=== PATIENT | female | born 1935 | race Caucasian/White ===

== ENCOUNTER 2017-07-14 09:03 | Observation (INO) | payer MEDICARE, BC ==
--- NOTE | 2017-07-14 09:12 | ERPHSYRPT ---
- History of Present Illness Time Seen by Provider: 07/14/17 09:07 Source: patient, EMS, intermediate records Exam Limitations: no limitations Physician History: 81-year-old white female with history of atrial fibrillation, pacer defibrillator brought by paramedics with complaint of the patient had slurry speech and left-sided arm weakness symptoms since 750 this morning at the intermediate, 'Patient was noted to have the slurry speech in the left-sided arm weakness on first contact with the intermediate personnel, Patient really states that she was really not aware of any deficits or weakness she is brought by medics who state they arrived at 820 they do not see any facial droop or a weakness or speech disorder. Patient arrives she is alert oriented 3 she has no visible defects stroke assessment is negative 2 per nursing personnel and medics. Past medical history includes atrial fibrillation,CHF, coronary artery disease, hyperlipidemia, high blood pressure, myocardial infarction, bronchitis, COPD, pneumonia, hypothyroidism Past surgical history: CABG, defibrillator/pacer, benign lung biopsy, ORIF right hip and femur Timing/Duration: today (750 this morning), improved, other (patient with no visible defects on ) Severity: moderate Modifying Factors: Improves With: nothing Associated Symptoms: other (patient states she feels tired this morning), No nausea, No vomiting, No abdominal pain, No shortness of breath, No heartburn, No diaphoresis, No cough, No chills, No chest pain, No fever, No headaches, No loss of appetite, No malaise, No rash, No syncope, No seizure, No weakness Allergies/Adverse Reactions: morphine Allergy (Severe, Verified 07/14/17 09:28) "Anaphylactic Shock" Home Medications: Acetaminophen 325 mg [Tylenol 325 mg] 650 mg PO Q4-6HPRN PRN 07/14/17 [ History] Digoxin 125 mcg PO DAILY 07/14/17 [History] Fentanyl 25Mcg Patch [Duragesic 25MCG Patch] 25 mcg TOP Q3D 07/14/17 [ History] Gabapentin 200 mg PO TID 07/14/17 [History] Hydrocodone Bit/Acetaminophen [Hydrocodon-Acetaminophn 10-325] 1 each PO Q4- 6HPRN PRN 07/14/17 [History] Hydrocodone Bit/Acetaminophen [Hydrocodon-Acetaminophn 10-325] 1 each PO TID 08/20 [History] Ipratropium/Albuterol Sulfate [Combivent Inhaler] 15 gm IH QID 07/14/17 [History ] Ipratropium/Albuterol Sulfate [Iprat-Albut 0.5-3(2.5) mg/3 ml] 3 ml IH Q8H PRN PRN 07/14/17 [History] Lactose-Reduced Food/Fiber [Jevity 1.2 Jostin Liquid] 80 ml PO DAILY 07/14/17 [ History] Lisinopril [Zestril] 5 mg PO DAILY 07/14/17 [History] Magnesium Hydroxide 30 ml [Milk of Magnesia 30 ml] 30 ml PO DAILY [History] Omeprazole 20 MG [Prilosec 20 mg] 20 mg PO DAILY 07/14/17 [History] Ondansetron HCl [Zofran] 4 mg PO Q4H PRN PRN 07/14/17 [History] Polyethylene Glycol 3350 17 gm [Miralax Powder 17GM PACKET] 17 gm PO DAILY [History] Potassium Chloride [Klor-Con 10] 10 meq PO DAILY 07/14/17 [History] Pramipexole Di-HCl [Mirapex] 0.25 mg PO HS 07/14/17 [History] Hx Tetanus, Diphtheria Vaccination/Date Given: No Hx Influenza Vaccination/Date Given: Yes Hx Pneumococcal Vaccination/Date Given: No (2010) - Review of Systems Constitutional: Fatigue, Other (patient feels tired this morning), No Fever, No Chills Eyes: No Symptoms Ears, Nose, & Throat: No Symptoms Respiratory: No Cough, No Dyspnea Cardiac: No Chest Pain, No Edema, No Syncope Abdominal/Gastrointestinal: No Abdominal Pain, No Nausea, No Vomiting, No Diarrhea Genitourinary Symptoms: No Dysuria Musculoskeletal: No Back Pain, No Neck Pain Skin: No Rash Neurological: Other (facial droop with left-sided arm weakness at intermediate this morning) Psychological: No Symptoms Endocrine: No Symptoms All Other Systems: Reviewed and Negative - Past Medical History Pertinent Past Medical History: Yes Neurological History: No Pertinent History ENT History: No Pertinent History Cardiac History: Arrhythmia, Congestive Heart Failure, Coronary Artery Disease, High Cholesterol, Hypertension, Myocardial Infarction ([place]) Respiratory History: Bronchitis, CHF, COPD, Pneumonia Endocrine Medical History: Hypothyroidism Musculoskeletal History: No Pertinent History GI Medical History: No Pertinent History History: Other Psycho-Social History: No Pertinent History Female Reproductive Disorders: No Pertinent History Other Medical History: History of right hip fracture. Irritable bladder and hysterectomy. - Past Surgical History Past Surgical History: Yes Neuro Surgical History: No Pertinent History Cardiac: CABG, Internal Defibrillator, Pacemaker Respiratory: Other Gastrointestinal: No Pertinent History Genitourinary: No Pertinent History Musculoskeletal: Joint Replacement Female Surgical History: Hysterectomy Other Surgical History: TRIPLE BYPASS 26 YEARS AGO. Lung biopsy that was benign. Open Reduction to right hip and femur about 15 years ago. - Social History Smoking Status: Former smoker How long have you smoked: 10 years Exposure to second hand smoke: No Drug Use: none Patient Lives Alone: No - Female History Hx Now: No - Nursing Vital Signs Nursing Vital Signs: Initial Vital Signs Temperature 98.2 F 07/14/17 09:05 Pulse Rate 56 L 07/14/17 09:05 Respiratory Rate 20 07/14/17 09:05 Blood Pressure 156/74 07/14/17 09:05 O2 Sat by Pulse Oximetry 99 07/14/17 09:05 Pain Scale Pain Intensity 5 - Physical Exam General Appearance: no apparent distress, alert Eye Exam: PERRL/EOMI, eyes nml inspection Ears, Nose, Throat Exam: normal ENT inspection, TMs normal, pharynx normal, moist mucous membranes Neck Exam: normal inspection, non-tender, supple, full range of motion Respiratory Exam: normal breath sounds, lungs clear, No respiratory distress Cardiovascular Exam: regular rate/rhythm, normal heart sounds, normal peripheral pulses Gastrointestinal/Abdomen Exam: soft, normal bowel sounds, No tenderness, No mass Back Exam: normal inspection, normal range of motion, No CVA tenderness, No vertebral tenderness Extremity Exam: normal inspection, normal range of motion, pelvis stable Neurologic Exam: alert, oriented x 3, cooperative, log rider II-XII nml as tested, normal mood/affect, nml cerebellar function, nml station & gait, sensation nml, other (patient is alert, oriented 3, speech normal, no facial droop noted, no tongue deviation, bulk plant manager equal and symmetrical 5/5, normal finger to nose, no pronator drift, full range of motion all extremities, sensation intact to all extremities), No motor deficits, No sensory deficit, No disoriented, No confusion, No agitation, No uncooperative Skin Exam: normal color, warm, dry, No rash SpO2 Interpretation: normal (99% ) Oxygen Delivery: Room Air - Course Nursing assessment & vital signs reviewed: Yes EKG Interpreted by Me: RATE (50), Other (EKG, paced rhythm 50 bpm) - Radiology Exams Chest X-ray Interpretation: Discussed w/ radiologist, Negative, Other (no acute disease process noted) - CT Exams Head CT Interpretation: Discussed w/radiologist (Head CT: Stable non acute senile brain with left basal ganglia remote lacunar infarct) Ordered Tests: Active Orders 24 hr Category Date Time Status Accucheck STAT Care 07/14/17 09:05 Active Tab Card Press Operator STAT Care 07/14/17 09:05 Active EKG-ER Only STAT Care 07/14/17 09:05 Active IV Insertion STAT Care 07/14/17 09:05 Active Pulse Oximetry (ED) STAT Care 07/14/17 09:05 Active CHEST 1 VIEW (PORTABLE) Stat Exams 07/14/17 09:05 Completed HEAD WITHOUT CONTRAST [CT] Stat Exams 07/14/17 09:05 Completed CBC W DIFF Stat Lab 07/14/17 09:10 Completed CMP Stat Lab 07/14/17 09:10 Completed DIGOXIN Stat Lab 07/14/17 09:10 Completed PROTIME WITH INR Stat Lab 07/14/17 10:00 Completed PTT Stat Lab 07/14/17 10:00 Completed Transfer Order Routine Transfer 07/14/17 Ordered Medication Summary Discontinued Medications Generic Name Dose Route Start Last Admin Trade Name Peewee PRN Reason Stop Dose Admin Aspirin 162 mg 07/14/17 10:21 Baby Aspirin 81 Mg Chew PO 07/14/17 10:22 STAT ONE Aspirin Confirm 07/14/17 10:24 Baby Aspirin 81 Mg Chew Administered 07/14/17 10:25 Dose 162 mg .ROUTE .STK-MED ONE Lab/Rad Data: Laboratory Result Diagrams 07/14/17 09:10 07/14/17 09:10 Laboratory Results 07/14/17 07/14/17 07/14/17 Range/Units 10:00 09:10 09:10 WBC (4.0-10.5) K/mm3 RBC (4.1-5.4) M/mm3 Hgb (12.0-16.0) gm/dl Hct (35-47) % MCV (78-100) fl MCH (26-32) pg MCHC (32-36) g/dl RDW (11.5-14.0) % Plt Count (150-450) K/mm3 MPV (6-9.5) fl Gran % (36.0-66.0) % Lymphocytes % (24.0-44.0) % Monocytes % (0.0-12.0) % Eosinophils % (0.00-5.0) % Basophils % (0.0-0.4) % Basophils # (0-0.4) INR 1.08 (0.8-3.0) APTT 17.6 L (25.3-37.0) SECONDS Sodium 141 (136-145) mEq/L Potassium 4.5 (3.5-5.1) mEq/L Chloride 104 (98-107) mEq/L Carbon Dioxide 29.2 (21-32) mEq/L Anion Gap 11.9 (5-15) MEQ/L BUN 22 H (9-20) mg/dL Creatinine 0.51 L (0.55-1.30) mg/dl Estimated GFR > 60 ML/MIN Glucose 104 (70-110) MG/DL Calcium 9.0 (8.5-10.1) mg/dL Total Bilirubin 0.40 (0.2-1.0) mg/dL AST 21 (15-37) U/L ALT 16 (12-78) U/L Alkaline Phosphatase 89 (46-116) U/L Serum Total Protein 6.9 (6.4-8.2) gm/dL Albumin 3.3 L (3.4-5.0) g/dL Digoxin 0.56 (0.5-1.5) ng/ml 07/14/17 Range/Units 09:10 WBC 7.9 (4.0-10.5) K/mm3 RBC 3.75 L (4.1-5.4) M/mm3 Hgb 11.9 L (12.0-16.0) gm/dl Hct 36.9 (35-47) % MCV 98.4 (78-100) fl MCH 31.7 (26-32) pg MCHC 32.2 (32-36) g/dl RDW 13.2 (11.5-14.0) % Plt Count 158 (150-450) K/mm3 MPV 9.8 H (6-9.5) fl Gran % 78.6 H (36.0-66.0) % Lymphocytes % 13.1 L (24.0-44.0) % Monocytes % 6.7 (0.0-12.0) % Eosinophils % 1.3 (0.00-5.0) % Basophils % 0.3 (0.0-0.4) % Basophils # 0.02 (0-0.4) INR (0.8-3.0) APTT (25.3-37.0) SECONDS Sodium (136-145) mEq/L Potassium (3.5-5.1) mEq/L Chloride (98-107) mEq/L Carbon Dioxide (21-32) mEq/L Anion Gap (5-15) MEQ/L BUN (9-20) mg/dL Creatinine (0.55-1.30) mg/dl Estimated GFR ML/MIN Glucose (70-110) MG/DL Calcium (8.5-10.1) mg/dL Total Bilirubin (0.2-1.0) mg/dL AST (15-37) U/L ALT (12-78) U/L Alkaline Phosphatase (46-116) U/L Serum Total Protein (6.4-8.2) gm/dL Albumin (3.4-5.0) g/dL Digoxin (0.5-1.5) ng/ml - Progress Progress: improved Progress Note: 07/14/17 10:17 81-year-old white female with history of atrial fibrillation on a pacer defibrillator Patient noted to have left facial droop left arm weakness at the intermediate at approximately 750 this morning which had resolved by the time the medics arrived to pick her up at 820 patient arrives without visible deficits she is alert oriented 3 bulk plant manager are equal and symmetrical there is no facial droop speech is normal full range of motion all extremities normal neurologic examination Head CT is remarkable for an old lacunar infarct no new or acute intracranial changes EKG is remarkable for a paced rhythm 50 bpm other labs are essentially normal. Case is discussed with Dr. Jamel Long will place patient on telemetry provide every 4 hours neuro checks will give patient aspirin 162 mg orally here in the emergency room and continue this daily on the floor. Diagnoses TIA - Departure Time of Disposition: 10:29 Departure Disposition: Observation Clinical Impression: TIA (transient ischemic attack) Qualifiers: Transient cerebral ischemia type: unspecified Qualified Code(s): G45.9 - Transient cerebral ischemic attack, unspecified Condition: Fair Critical Care Time: No Referrals: KAVITA FUENTES [Primary Care Provider] -
[2017-07-14 09:36] LABS: ALBUMIN 3.3 g/dL (3.4-5.0); ALKALINE PHOSPHATASE 89 U/L (46-116); ANION GAP 11.9 MEQ/L (5-15); BLOOD UREA NITROGEN 22 mg/dL (9-20); CHLORIDE 104 mEq/L (98-107); Carbon Dioxide 29.2 mEq/L (21-32); Glucose 104 MG/DL (70-110); Potassium 4.5 mEq/L (3.5-5.1); SGOT/AST 21 U/L (15-37); SGPT/ALT 16 U/L (12-78); SODIUM 141 mEq/L (136-145); Total Protein 6.9 gm/dL (6.4-8.2)
--- NOTE | 2017-07-14 09:51 | XRAY ---
Indication: Weakness. Comparison: November 14, 2015. Portable chest unchanged again clear with cardiomegaly, CABG surgery, left-sided AICD, right-sided Port-A-Cath, osteopenia, and bony degenerative changes. No new/acute cardiopulmonary findings.
--- NOTE | 2017-07-14 09:53 | XRAY ---
Indication: Headache and slurred speech. Multiple contiguous axial images obtained through the head without contrast. Comparison: July 22, 2015. Stable age-appropriate global atrophy and left basal ganglia remote lacunar infarct. No acute intracranial hemorrhage, abnormal extra-axial fluid collection, or mass effect. Fourth ventricle is midline without hydrocephalus. Das-white matter differentiation preserved. Bony calvarium intact. Visualized paranasal sinuses and mastoid air cells clear. Impression: Stable nonacute senile brain with left basal ganglia remote lacunar infarct. CTDI 69.66
[2017-07-14 10:00] LABS: BASOPHIL % 0.3 % (0.0-0.4); Eosinophil % 1.3 % (0.00-5.0); Granulocytes % 78.6 % (36.0-66.0); Lymphocytes % 13.1 % (24.0-44.0); Mean Cell Volume 98.4 fl (78-100); Mean Corpuscular Hemoglobin 31.7 pg (26-32); Mean Platelet Volume 9.8 fl (6-9.5); Monocytes % 6.7 % (0.0-12.0); Platelet Count 158 K/mm3 (150-450); Red Blood Count 3.75 M/mm3 (4.1-5.4); Red Cell Distribution Width 13.2 % (11.5-14.0); White Blood Count 7.9 K/mm3 (4.0-10.5)
[2017-07-14 10:10] LABS: INR 1.08 (0.8-3.0)
[2017-07-14 10:13] LABS: PTT 17.6 SECONDS (25.3-37.0)
[2017-07-14] MEDS ORDERED: BABY ASPIRIN 81 MG CHEW PO ONE (10:21)
[2017-07-14] MEDS ORDERED: BABY ASPIRIN 81 MG CHEW ONE (10:24)
--- NOTE | 2017-07-14 11:58 | PCM.HP ---
History of Present Illness - Chief Complaint Chief Complaint: tia Date: 07/14/17 History of Present Illness: is a 81 year old female. who lives at [facility] where she has been stable and doing well. She woke up this am in her normal health but while in her chair awaiting to be taken to breakfast the aide noted her speech was slurred and her face was drooping. She had a period when the nurse was having difficulty getting her to respond she was slow to respond had slurred speech and left sided facial droop. This resolved by the time she arrived at the ED. She notes that about 1 week ago she had her defibrallator shock her while she was having a bowel movement it had not done this in over 3 years. She has otherwise felt her normal self. She did not have any further evaluation after the pacemaker shock last week. For her afib, she was on warfarin for many years then pradaxa but had to be taken off the pradaxa due to persistent anemia requiring multiple blood transfusions and has not been on in several years. She is currently on no anticoagulants or antiplts and no recent bleeding. Since her G tube was placed about 18 months ago she has been doing much better from a nutrition stand point. She currently has her chronic pain in her extremities as she has not had her scheduled pain medication but otherwise feels herself. - Review of Systems Constitutional: No Fever, No Chills Eyes: No Symptoms Ears, Nose, & Throat: No Symptoms Respiratory: No Cough, No Short Of Breath Cardiac: No Chest Pain, No Edema, No Syncope Abdominal/Gastrointestinal: No Abdominal Pain, No Nausea, No Vomiting, No Diarrhea Genitourinary Symptoms: No Dysuria Musculoskeletal: No Back Pain, No Neck Pain Skin: No Rash Neurological: No Dizziness, No Focal Weakness, No Sensory Changes Psychological: No Symptoms Endocrine: No Symptoms Hematologic/Lymphatic: No Symptoms Immunological/Allergic: No Symptoms Medications & Allergies Home Medications: Home Medication List Heparin Flush 500 units/5 ml [Heparin Lock Flush 100 Units/ml 5ml Syringe] 0 units IV UD PRN #0 disp.syrin 10/21/15 [Rx Confirmed 07/14/17] Acetaminophen 325 mg [Tylenol 325 mg] 650 mg PO Q4-6HPRN PRN 07/14/17 [ History Confirmed 07/14/17] Digoxin 125 mcg PO DAILY 07/14/17 [History Confirmed 07/14/17] Docusate Sodium 100 mg [Colace 100 MG] 100 mg PO DAILY 07/14/17 [History Confirmed 07/14/17] Fentanyl 25Mcg Patch [Duragesic 25MCG Patch] 25 mcg TOP Q3D 07/14/17 [ History Confirmed 07/14/17] Furosemide 40 mg [Lasix 40 MG] 40 mg PO DAILY 07/14/17 [History Confirmed 07/14/17] Gabapentin 200 mg PO TID 07/14/17 [History Confirmed 07/14/17] Hydrocodone Bit/Acetaminophen [Hydrocodon-Acetaminophn 10-325] 1 each PO Q4H PRN PRN 07/14/17 [History Confirmed 07/14/17] Hydrocodone Bit/Acetaminophen [Hydrocodon-Acetaminophn 10-325] 1 each PO TID 08/20 [History Confirmed 07/14/17] Ipratropium/Albuterol Sulfate [Combivent Inhaler] 15 gm IH QID 07/14/17 [ History Confirmed 07/14/17] Ipratropium/Albuterol Sulfate [Iprat-Albut 0.5-3(2.5) mg/3 ml] 3 ml IH Q8H PRN PRN 07/14/17 [History Confirmed 07/14/17] Lactose-Reduced Food/Fiber [Jevity 1.2 Jostin Liquid] 80 ml PEG DAILY 07/14/17 [ History Confirmed 07/14/17] Lisinopril [Zestril] 5 mg PO DAILY 07/14/17 [History Confirmed 07/14/17] Magnesium Hydroxide 30 ml [Milk of Magnesia 30 ml] 30 ml PO DAILY [History Confirmed 07/14/17] Omeprazole 20 MG [Prilosec 20 mg] 20 mg PO DAILY 07/14/17 [History Confirmed 08/20] Ondansetron HCl [Zofran] 4 mg PO Q4H PRN PRN 07/14/17 [History Confirmed ] Polyethylene Glycol 3350 17 gm [Miralax Powder 17GM PACKET] 17 gm PO DAILY [History Confirmed 07/14/17] Potassium Chloride [Klor-Con Sprinkle] 10 meq PO DAILY 07/14/17 [History Confirmed 07/14/17] Pramipexole Di-HCl [Mirapex] 0.25 mg PO HS 07/14/17 [History Confirmed 07/14/17] Allergies/Adverse Reactions: Allergies Allergy/AdvReac Type Severity Reaction Status Date / Time morphine Allergy Severe Verified 07/14/17 09:28 - Past Medical History Past Medical History: Yes Neurological History: No Pertinent History ENT History: No Pertinent History Cardiac History: Arrhythmia, Congestive Heart Failure, Coronary Artery Disease, High Cholesterol, Hypertension, Myocardial Infarction ([place]) Respiratory History: Bronchitis, CHF, COPD, Pneumonia Endocrine Medical History: Hypothyroidism Musculoskelatal History: No Pertinent History GI Medical History: No Pertinent History History: Other Pyscho-Social History: No Pertinent History Reproductive Disorders: No Pertinent History Comment: History of right hip fracture. Irritable bladder and hysterectomy. - Past Surgical History Past Surgical History: Yes Neuro Surgical History: No Pertinent History Cardiac History: CABG, Internal Defibrillator, Pacemaker Respiratory Surgery: Other GI Surgical History: No Pertinent History Genitourinary Surgical Hx: No Pertinent History Musculskeletal Surgical Hx: Joint Replacement Female Surgical History: Hysterectomy Other Surgical History: TRIPLE BYPASS 26 YEARS AGO. Lung biopsy that was benign. Open Reduction to right hip and femur about 15 years ago. - Social History Smoking Status: Former smoker How long have you smoked: 10 years Exposure to second hand smoke: No Alcohol: None Drug Use: none - Physical Exam Vital Signs: Vital Signs - 24 hr Temp Pulse Resp BP Pulse Ox 07/14/17 11:40 98.3 F 53 L 18 163/67 96 07/14/17 10:55 98.3 F 53 L 18 163/67 96 07/14/17 10:50 98.3 F 53 L 18 163/67 96 07/14/17 10:21 51 L 18 134/63 96 07/14/17 09:59 59 L 18 117/64 95 07/14/17 09:05 98.2 F 56 L 20 156/74 99 General Appearance: no apparent distress, alert, thin Neurologic Exam: alert, oriented x 3, cooperative, normal mood/affect, nml cerebellar function, sensation nml, No motor deficits Eye Exam: PERRL/EOMI, eyes nml inspection Ears, Nose, Throat Exam: normal ENT inspection, TMs normal, pharynx normal, moist mucous membranes Neck Exam: normal inspection, non-tender, supple, full range of motion Respiratory Exam: normal breath sounds, lungs clear, No respiratory distress Cardiovascular Exam: normal peripheral pulses, murmur, No edema Gastrointestinal/Abdomen Exam: soft, normal bowel sounds, No tenderness, No mass Back Exam: normal inspection, normal range of motion, No CVA tenderness, No vertebral tenderness Extremity Exam: normal inspection, normal range of motion, pelvis stable Skin Exam: normal color, warm, dry, No rash Lymphatic Exam: No adenopathy Results - Radiology Impressions Radiology Exams & Impressions: Radiology Procedures Category Date Time Status CAROTID BILATERAL [US] Routine Exams 07/15/17 09:00 Ordered ECHO W/2D AND DOPPLER [US] Routine Exams 07/15/17 09:00 Ordered - Other Procedures and Tests Respiratory Therapy 07/14/17 11:32 Respiratory Nebulizer QID Assessment/Plan (1) TIA (transient ischemic attack) Current Visit: Yes Status: Acute Qualifiers: Transient cerebral ischemia type: unspecified Qualified Code(s): G45.9 - Transient cerebral ischemic attack, unspecified Assessment & Plan: will check the carotids and an echo and lipid panel she follows with Dr. Lee and has elected to not have her defibrillator/ pacemaker serviced as she does not want any further procedures done. She has appointment with Dr. Lee 08/01/17 we had extensive discussion about stroke prevention and anticoagulation with atrial fibrillation given the new TIA and her being off anticoags for several years and now in nursing facility getting nutrition and PPI she has elected to try anticoagulation again and we discussed if she has persistent anemia or bleeding it would need stopped started on eliquis 2.5 bid with her age >81 and weight <60kg started statin plan for back to [facility] tomorrow after testing if remains stable and f/u cbc on the eliquis We discussed with her pacemaker not replacing the battery if indicated could result in her heart stopping and and she understands this and elects at this time not to have further pacemaker evaluation (2) Esophageal dysfunction Current Visit: Yes Status: Chronic Code(s): K22.4 - DYSKINESIA OF ESOPHAGUS (3) CHF (congestive heart failure) Current Visit: Yes Status: Chronic Qualifiers: Congestive heart failure type: combined Congestive heart failure chronicity : chronic Qualified Code(s): I50.42 - Chronic combined systolic (congestive) and diastolic (congestive) heart failure Code(s): I50.9 - HEART FAILURE, UNSPECIFIED (4) COPD (chronic obstructive pulmonary disease) Current Visit: Yes Status: Chronic
[2017-07-14] MEDS ORDERED: NON-FORMULARY ITEM (Ondansetron Hcl [Zofran] 4 MG) PO PRN (12:09)
[2017-07-14] MEDS ORDERED: TYLENOL 325 MG PO PRN (12:09)
[2017-07-14] MEDS ORDERED: Duragesic 25MCG Patch TOP SCH (12:15)
[2017-07-14] MEDS ORDERED: ZOFRAN ODT 4 MG PO PRN (12:16)
[2017-07-14] MEDS: Norco 10/325 MG Tablet PO PRN ×2 (12:53→18:02)
[2017-07-14] MEDS: Lanoxin 0.125MG TABLET PO SCH (13:54)
[2017-07-14] MEDS: Colace 100 MG PO SCH (13:55)
[2017-07-14] MEDS: ELIQUIS PO SCH ×2 (13:55→21:55)
[2017-07-14] MEDS: Klor Con 10 MEQ PO SCH (13:55)
[2017-07-14] MEDS: Zestril 5 MG PO SCH (13:55)
[2017-07-14] MEDS: Lasix 40 MG PO SCH (13:55)
[2017-07-14] MEDS: Protonix 40MG Tablet PO SCH (13:55)
[2017-07-14] MEDS: Miralax Powder 17GM PACKET PO SCH (13:56)
[2017-07-14] MEDS: DUONEB 0.5-3 MG/3 ml Neb IH SCH ×2 (14:15→20:05)
[2017-07-14] MEDS: Neurontin 100 MG PO SCH ×2 (15:00→21:54)
[2017-07-14] MEDS: Norco 10/325 MG Tablet PO SCH ×2 (15:01→22:02)
[2017-07-14] MEDS ORDERED: Mirapex 0.5 MG Tablet PO SCH (22:00)
[2017-07-14] MEDS ORDERED: ZOCOR 20MG PO SCH (22:00)
[2017-07-14] MEDS ORDERED: PRAMIPEXOLE DI HCL 0.25 MG PO SCH (22:00)
[2017-07-15] MEDS: Norco 10/325 MG Tablet PO PRN (03:06)
[2017-07-15] MEDS: DUONEB 0.5-3 MG/3 ml Neb IH SCH ×2 (05:30→10:42)
[2017-07-15 06:40] LABS: BASOPHIL % 0.3 % (0.0-0.4); Eosinophil % 2.2 % (0.00-5.0); Lymphocytes % 26.5 % (24.0-44.0); Mean Cell Volume 99.4 fl (78-100); Mean Corpuscular Hemoglobin 31.4 pg (26-32); Mean Platelet Volume 9.9 fl (6-9.5); Platelet Count 164 K/mm3 (150-450); Red Blood Count 3.63 M/mm3 (4.1-5.4); Red Cell Distribution Width 13.6 % (11.5-14.0); White Blood Count 6.8 K/mm3 (4.0-10.5)
[2017-07-15 07:09] LABS: ALBUMIN 3.1 g/dL (3.4-5.0); ALKALINE PHOSPHATASE 60 U/L (46-116); ANION GAP 9.5 MEQ/L (5-15); BLOOD UREA NITROGEN 18 mg/dL (9-20); CHLORIDE 105 mEq/L (98-107); Glucose 98 MG/DL (70-110); Potassium 4.1 mEq/L (3.5-5.1); SGOT/AST 21 U/L (15-37); SGPT/ALT 12 U/L (12-78); SODIUM 140 mEq/L (136-145); Total Protein 6.8 gm/dL (6.4-8.2)
--- NOTE | 2017-07-15 08:20 | PCM.DCORD ---
- Discharge Discharge Date: 07/15/17 Disposition: DC TO [facility] Condition: Fair Prescriptions: New Atorvastatin Calcium 20 mg PO HS #30 tablet Apixaban [Eliquis] 2.5 mg PO BID #60 tablet Continue Heparin Flush 500 units/5 ml [Heparin Lock Flush 100 Units/ml 5ml Syringe ] 0 units IV UD PRN #0 disp.syrin PRN Reason: port flush Ipratropium/Albuterol Sulfate [Combivent Inhaler] 15 gm IH QID Gabapentin 200 mg PO TID Fentanyl 25Mcg Patch [Duragesic 25MCG Patch] 25 mcg TOP Q3D Hydrocodone Bit/Acetaminophen [Hydrocodon-Acetaminophn 10-325] 1 each PO TID Hydrocodone Bit/Acetaminophen [Hydrocodon-Acetaminophn 10-325] 1 each PO Q4H PRN PRN PRN Reason: Moderate To Severe Pain Ipratropium/Albuterol Sulfate [Iprat-Albut 0.5-3(2.5) mg/3 ml] 3 ml IH Q8H PRN PRN PRN Reason: Shortness Of Breath Lactose-Reduced Food/Fiber [Jevity 1.2 Jostin Liquid] 80 ml PEG DAILY Polyethylene Glycol 3350 17 gm [Miralax Powder 17GM PACKET] 17 gm PO DAILY Lisinopril [Zestril] 5 mg PO DAILY Pramipexole Di-HCl [Mirapex] 0.25 mg PO HS Omeprazole 20 MG [Prilosec 20 mg] 20 mg PO DAILY Magnesium Hydroxide 30 ml [Milk of Magnesia 30 ml] 30 ml PO DAILY Acetaminophen 325 mg [Tylenol 325 mg] 650 mg PO Q4-6HPRN PRN PRN Reason: Pain And/Or Fever Ondansetron HCl [Zofran] 4 mg PO Q4H PRN PRN PRN Reason: Nausea Digoxin 125 mcg PO DAILY Docusate Sodium 100 mg [Colace 100 MG] 100 mg PO DAILY Furosemide 40 mg [Lasix 40 MG] 40 mg PO DAILY Potassium Chloride [Klor-Con Sprinkle] 10 meq PO DAILY Follow up with: KAVITA FUENTES [Primary Care Provider] -
--- NOTE | 2017-07-15 08:59 | XRAY ---
Indication: TIA. Two-dimensional sonogram and color Doppler imaging of the carotid arteries of the neck performed. Comparison: None Examination of the right carotid circulation demonstrates very minimal common carotid scattered calcified plaquing. Mild focal calcified plaquing seen at the level of the bulb extending into the origin of the internal carotid artery. Further scattered heterogeneous plaquing seen in the internal carotid artery. Incidental tortuous internal carotid artery. PSV of the CCA is 77 cm/s. PSV of the ICA is 160 cm/s. ICA/CCA ratio is 2.1. Normal antegrade vertebral artery flow. Examination of the left carotid circulation also demonstrates very minimal common carotid scattered calcified plaquing with greater mild/moderate calcific plaquing at the level of the bulb extending into the origin of the internal and external carotid artery. Tortuous internal carotid artery. PSV of the CCA is 79 cm/s. PSV of the ICA is 183 cm/s. ICA/CCA ratio is 2.3. Normal antegrade vertebral artery flow. Impression: Bilaterally scattered arteriosclerotic plaquing, left greater than right. Velocity measurements and ratios favor 50-69% stenosis bilaterally. Normal bilateral antegrade vertebral artery flow.
[2017-07-15] MEDS: Protonix 40MG Tablet PO SCH (09:13)
[2017-07-15] MEDS: Lanoxin 0.125MG TABLET PO SCH (09:13)
[2017-07-15] MEDS: Lasix 40 MG PO SCH (09:14)
[2017-07-15] MEDS: Colace 100 MG PO SCH (09:14)
[2017-07-15] MEDS: Klor Con 10 MEQ PO SCH (09:14)
[2017-07-15] MEDS: ELIQUIS PO SCH (09:14)
[2017-07-15] MEDS: Neurontin 100 MG PO SCH (09:14)
[2017-07-15] MEDS: Miralax Powder 17GM PACKET PO SCH (09:14)
[2017-07-15] MEDS: Norco 10/325 MG Tablet PO SCH (09:15)
[2017-07-15] MEDS: Zestril 5 MG PO SCH (09:54)
[2017-07-15] MEDS ORDERED: ECOTRIN 81 MG PO SCH (10:00)
[2017-07-15] MEDS ORDERED: POTASSIUM CHLORIDE 10 MEQ PO SCH (10:00)
[2017-07-15] MEDS ORDERED: NON-FORMULARY ITEM (Omeprazole 20 Mg [Prilosec 20 Mg] 20 MG) PO SCH (10:00)
[2017-07-15 11:44] VITALS: BP 135/63; PULSE 74; O2SAT 92
--- NOTE | 2017-07-15 15:01 | ECHO ---
Transthoracic echocardiographic examination and color Doppler was done on 07/15/2017. INDICATION: Transient ischemic attack, history of cardiomyopathy. IMPRESSION: 1) SEGMENTAL WALL MOTION ABNORMALITY WITH ANEURYSMAL LEFT VENTRICLE. THE GLOBAL LEFT VENTRICULAR EJECTION FRACTION OF AROUND 25%. 2) MILD MITRAL REGURGITATION. 3) MODERATE TRICUSPID REGURGITATION. RIGHT VENTRICULAR SYSTOLIC PRESSURE OF 37 MM OF MERCURY. 4) LEFT ATRIAL ENLARGEMENT. 5) LEFT VENTRICULAR HYPERTROPHY. 6) TRACE PULMONIC INSUFFICIENCY. 7) LEFT VENTRICULAR DIASTOLIC DYSFUNCTION. 8) AORTIC VALVE SCLEROSIS WITH A PEAK TRANSAORTIC GRADIENT OF 14 MM OF MERCURY. 9) PACEMAKER ICD ELECTRODE IN THE RIGHT VENTRICLE. The left ventricle is visualized and demonstrated regional wall motion abnormality with distal half of the left ventricle being aneurysmal. The estimated global left ventricular ejection fraction is around 25%. There is mild left ventricular hypertrophy. The mitral valve is sclerotic but opens adequately. There is mild mitral regurgitation. Left atrium is enlarged. The aortic valve is sclerotic. The peak gradient across the left ventricular outflow tract is 14 mm of Mercury. There is trace aortic regurgitation. The tissue Doppler study of the lateral mitral annulus suggestive of left ventricular diastolic dysfunction. Right side chambers are mildly dilated. There is moderate tricuspid regurgitation. The right ventricular systolic pressure of 37 mm of Mercury. There is also trace pulmonic insufficiency. There is a pacemaker ICD electrode in the right ventricle.
--- NOTE | 2017-07-15 18:13 | PCM.DS ---
Discharge Summary Date of Admission: 07/14/17 10:45 Date of Discharge: 07/15/17 Admitting Physician: KAVITA FUENTES Primary Care Provider: KAVITA FUENTES Allergies Allergies morphine Allergy (Severe, Verified 07/14/17 09:28) "Anaphylactic Shock" Hospital Summary - Hospital Course Hospital Course: She was admitted after left facial droop slurred speech sudden onset at [place] that resolved prior to arrival at ED. She remained without deficits throughout the stay. She has a pacemaker and defibrillator that she has refused to have replacement battery and has f/u with Dr. Lee for and understands if it stops her heart may stop and she may . She was anticoagulated in the past but had GI bleeding on pradaxa and did not like taking coumadin so has been off for several years now. She was restarted on Eliquis and discussed need to monitor for blood loss and anemia. She was started on lipitor. She had echo with reduced EF at 25% that she follows with Dr. Lee for and refuses any intervention or aggressive therapy. She has bilateral carotid artery moderate sclerosis but does not want aggressive treatments with surgery or stenting even if it could prevent another stroke. - Vitals & Intake/Output Vital Signs: Vital Signs Temperature 96.1 F 07/15/17 11:42 Pulse Rate 74 07/15/17 11:42 Respiratory Rate 18 07/15/17 11:42 Blood Pressure 135/63 07/15/17 11:42 O2 Sat by Pulse Oximetry 92 L 07/15/17 11:42 Intake & Output: Intake & Output 07/13/17 07/14/17 07/15/17 07/16/17 11:59 11:59 11:59 11:59 Intake Total 1320 Output Total 2050 Balance -730 Weight 57.334 kg 58.014 kg - Lab Result Diagrams: 07/15/17 06:30 07/15/17 06:30 Lab Results-Last 24 Hrs: Lab Results-Last 24 Hours 07/15/17 07/15/17 07/15/17 Range/Units 06:30 06:30 06:30 WBC 6.8 (4.0-10.5) K/mm3 RBC 3.63 L (4.1-5.4) M/mm3 Hgb 11.4 L (12.0-16.0) gm/dl Hct 36.1 (35-47) % MCV 99.4 (78-100) fl MCH 31.4 (26-32) pg MCHC 31.6 L (32-36) g/dl RDW 13.6 (11.5-14.0) % Plt Count 164 (150-450) K/mm3 MPV 9.9 H (6-9.5) fl Gran % 62.0 (36.0-66.0) % Lymphocytes % 26.5 (24.0-44.0) % Monocytes % 9.0 (0.0-12.0) % Eosinophils % 2.2 (0.00-5.0) % Basophils % 0.3 (0.0-0.4) % Basophils # 0.02 (0-0.4) Sodium 140 (136-145) mEq/L Potassium 4.1 (3.5-5.1) mEq/L Chloride 105 (98-107) mEq/L Carbon Dioxide 30.0 (21-32) mEq/L Anion Gap 9.5 (5-15) MEQ/L BUN 18 (9-20) mg/dL Creatinine 0.51 L (0.55-1.30) mg/dl Estimated GFR > 60 ML/MIN Glucose 98 (70-110) MG/DL Calcium 8.2 L (8.5-10.1) mg/dL Total Bilirubin 0.60 (0.2-1.0) mg/dL AST 21 (15-37) U/L ALT 12 (12-78) U/L Alkaline Phosphatase 60 (46-116) U/L Serum Total Protein 6.8 (6.4-8.2) gm/dL Albumin 3.1 L (3.4-5.0) g/dL Triglycerides 80 (30-200) mg/dL Cholesterol 174 (100-200) mg/dL LDL Cholesterol 114 H (5-99) mg/dL HDL Cholesterol 42 (35-60) mg/dL Heart Disease Risk Ratio 4.1 - Radiology Exams Ordered Rad Exams-Entire Visit: Radiology Procedures Category Date Time Status CAROTID BILATERAL [US] Routine Exams 07/15/17 09:00 Completed ECHO W/2D AND DOPPLER [US] Routine Exams 07/15/17 09:00 Draft - Procedures and Test Procedures and Tests throughout Hospitalization: Therapy Orders & Screens 07/14/17 11:32 Respiratory Nebulizer QID Comment: Diagnosis: tia 07/14/17 13:15 OT Screen per Nursing Assess ONCE Comment: Protocol Order Physician Instructions: Greater than 3 points order OT Admission Screening Reason For Exam: Triggered on Admission Diagnosis: TIA Open Wound/Cellutlitis/Pressure Ulcers: No Acute Fx/ORIF/Change in wt bearing status: No Severe MUSCULOSKELETAL pain: No ADL Dysfunction: Yes Acute CVA w/Hemiparesis/Hemiplegia: No Decreased Functional Mobility/Strength: Yes Sprain/Strain: No Acute Post-op Mobility Dysfunction: No Total Points: 4 PT Screen per Nursing Assess ONCE Comment: Protocol Order Physician Instructions: Greater than 3 points order PT Admission Screenin Reason For Exam: Triggered on Admission Diagnosis: TIA Open Wound/Cellutlitis/Pressure Ulcers: No Acute Fx/ORIF/Change in wt bearing status: No Severe MUSCULOSKELETAL pain: No ADL Dysfunction: Yes Acute CVA w/Hemiparesis/Hemiplegia: No Decreased Functional Mobility/Strength: Yes Sprain/Strain: No Acute Post-op Mobility Dysfunction: No Total Points: 4 RT Screen per Nursing Assess ONCE Comment: Protocol Order Physician Instructions: Greater than 3 points order RT Admission Screen Reason For Exam: Triggered on Admission Diagnosis: TIA Diagnosis: TIA Pneumonia: No Home O2: Yes: PRN only Asthma: No CHF: Yes Home CPAP/BIPAP: No Home Nebs/MDI: Yes Total Points: 13 ST Screen per Nursing Assess once Comment: Protocol Order Physician Instructions: Greater than [address] Admission Screening Reason For Exam: Triggered on Admission Diagnosis: TIA CVA/Dyshpagia/Aphasia: No Cognitive Deficits: No Dehydration/Nutrition Deficit: No Reflux: Yes Oral-Motor Difficulties: No Pneumonia: No Usp Resident: Yes Total Points: 8 Discharge Exam General Appearance: no apparent distress, alert Neurologic Exam: alert, oriented x 3, cooperative, normal mood/affect, nml cerebellar function, sensation nml, No motor deficits Skin Exam: normal color, warm, dry Eye Exam: PERRL, EOMI, eyes nml inspection Ears, Nose, Throat Exam: normal ENT inspection, pharynx normal, moist mucous membranes Neck Exam: normal inspection, non-tender, supple, full range of motion Respiratory Exam: normal breath sounds, lungs clear, No respiratory distress Cardiovascular Exam: regular rate/rhythm, normal heart sounds Gastrointestinal/Abdomen Exam: soft, No tenderness, No mass Extremity Exam: normal inspection, normal range of motion Back Exam: normal inspection, normal range of motion, No CVA tenderness, No vertebral tenderness Pelvic Exam: deferred Rectal Exam: deferred Final Diagnosis/Problem List - Final Discharge Diagnosis/Problem (1) TIA (transient ischemic attack) Status: Acute (2) Esophageal dysfunction Status: Chronic (3) CHF (congestive heart failure) Status: Chronic Assessment & Plan: systolic LVEF 25% (4) COPD (chronic obstructive pulmonary disease) Status: Chronic (5) Carotid artery stenosis Status: Chronic - Discharge Discharge Date: 07/15/17 Disposition: DC TO [facility] Condition: Fair Prescriptions: New Atorvastatin Calcium 20 mg PO HS #30 tablet Apixaban [Eliquis] 2.5 mg PO BID #60 tablet Continue Heparin Flush 500 units/5 ml [Heparin Lock Flush 100 Units/ml 5ml Syringe ] 0 units IV UD PRN #0 disp.syrin PRN Reason: port flush Ipratropium/Albuterol Sulfate [Combivent Inhaler] 15 gm IH QID Gabapentin 200 mg PO TID Fentanyl 25Mcg Patch [Duragesic 25MCG Patch] 25 mcg TOP Q3D Hydrocodone Bit/Acetaminophen [Hydrocodon-Acetaminophn 10-325] 1 each PO TID Hydrocodone Bit/Acetaminophen [Hydrocodon-Acetaminophn 10-325] 1 each PO Q4H PRN PRN PRN Reason: Moderate To Severe Pain Ipratropium/Albuterol Sulfate [Iprat-Albut 0.5-3(2.5) mg/3 ml] 3 ml IH Q8H PRN PRN PRN Reason: Shortness Of Breath Lactose-Reduced Food/Fiber [Jevity 1.2 Jostin Liquid] 80 ml PEG DAILY Polyethylene Glycol 3350 17 gm [Miralax Powder 17GM PACKET] 17 gm PO DAILY Lisinopril [Zestril] 5 mg PO DAILY Pramipexole Di-HCl [Mirapex] 0.25 mg PO HS Omeprazole 20 MG [Prilosec 20 mg] 20 mg PO DAILY Magnesium Hydroxide 30 ml [Milk of Magnesia 30 ml] 30 ml PO DAILY Acetaminophen 325 mg [Tylenol 325 mg] 650 mg PO Q4-6HPRN PRN PRN Reason: Pain And/Or Fever Ondansetron HCl [Zofran] 4 mg PO Q4H PRN PRN PRN Reason: Nausea Digoxin 125 mcg PO DAILY Docusate Sodium 100 mg [Colace 100 MG] 100 mg PO DAILY Furosemide 40 mg [Lasix 40 MG] 40 mg PO DAILY Potassium Chloride [Klor-Con Sprinkle] 10 meq PO DAILY Follow up with: KAVITA FUENTES [Primary Care Provider] - Forms: Transfer Record [facility]
== END 2017-07-15 12:03 | disposition home or self-care (01) ==
LOC: ED 09:03 → MED SURG 10:45
PROVIDERS: ADMIT Family Medicine; ATTEND Family Medicine
DX: G45.9 Transient cerebral ischemic attack, unspecified (principal); K22.4 Dyskinesia of esophagus; I50.42 Chronic combined systolic (congestive) and diastolic (congestive) heart failure; J44.9 Chronic obstructive pulmonary disease, unspecified; I65.29 Occlusion and stenosis of unspecified carotid artery; I10 Essential (primary) hypertension; I25.810 Atherosclerosis of coronary artery bypass graft(s) without angina pectoris; E03.9 Hypothyroidism, unspecified; Z79.01 Long term (current) use of anticoagulants; I25.2 Old myocardial infarction; Z95.810 Presence of automatic (implantable) cardiac defibrillator
CPT/HCPCS: 36000; 36415; 36591; 70450; 71010; 80053; 80061; 80162; 82962; 83721; 85025; 85610; 85730; 93005; 93041; 93268; 93306; 93880; 94640; 94760; 99285; G0378; J1642; A9270-GY